=== PATIENT | male | born 1945 | race Caucasian/White ===

== ENCOUNTER 2021-04-15 20:26 | Inpatient (IN) | payer MEDICARE ==
[2021-04-15] MEDS: clonazePAM 0.5 MG TAB PO PRN (23:54)
[2021-04-16] MEDS ORDERED: Docusate 100 MG CAP PO PRN (08:43)
[2021-04-16] MEDS ORDERED: Senokot 8.6 MG TAB PO PRN (08:44)
[2021-04-16] MEDS: Metoprolol Tartrate 25 MG TAB PO SCH ×2 (08:55→20:39)
[2021-04-16] MEDS: Lisinopril 5 MG TAB PO SCH (08:55)
[2021-04-16] MEDS: Clopidogrel Bisulfate 75 MG TAB PO SCH (08:55)
[2021-04-16] MEDS: Atorvastatin Calcium 40 MG TAB PO SCH (08:55)
[2021-04-16] MEDS ORDERED: Acetaminophen 500 MG TAB PO PRN ×2 (15:42)
[2021-04-16] MEDS: Aspirin Chewable 81 MG TAB PO SCH (20:39)
[2021-04-17] MEDS: Clopidogrel Bisulfate 75 MG TAB PO SCH (09:01)
[2021-04-17] MEDS: Metoprolol Tartrate 25 MG TAB PO SCH ×2 (09:01→21:23)
[2021-04-17] MEDS: Atorvastatin Calcium 40 MG TAB PO SCH (09:01)
[2021-04-17] MEDS: Lisinopril 5 MG TAB PO SCH (09:01)
[2021-04-17] MEDS ORDERED: Senokot S 8.6-50 MG TAB PO PRN (09:32)
[2021-04-17] MEDS ORDERED: Acetaminophen 500 MG TAB PO PRN (09:32)
[2021-04-17] MEDS: Aspirin Chewable 81 MG TAB PO SCH (21:23)
[2021-04-17] MEDS: clonazePAM 0.5 MG TAB PO PRN (22:11)
[2021-04-18] MEDS: Atorvastatin Calcium 40 MG TAB PO SCH (08:11)
[2021-04-18] MEDS: Clopidogrel Bisulfate 75 MG TAB PO SCH (08:11)
[2021-04-18] MEDS: Metoprolol Tartrate 25 MG TAB PO SCH ×2 (08:11→20:33)
[2021-04-18] MEDS: Lisinopril 5 MG TAB PO SCH (08:11)
[2021-04-18 13:02] VITALS: BMI 18.6
[2021-04-18] MEDS: Aspirin Chewable 81 MG TAB PO SCH (20:33)
[2021-04-19] MEDS: Clopidogrel Bisulfate 75 MG TAB PO SCH (08:16)
[2021-04-19] MEDS: Atorvastatin Calcium 40 MG TAB PO SCH (08:16)
[2021-04-19] MEDS: Metoprolol Tartrate 25 MG TAB PO SCH ×2 (08:16→20:06)
[2021-04-19] MEDS: Lisinopril 5 MG TAB PO SCH (08:16)
[2021-04-19] MEDS: Aspirin Chewable 81 MG TAB PO SCH (20:06)
[2021-04-20] MEDS: Clopidogrel Bisulfate 75 MG TAB PO SCH (08:34)
[2021-04-20] MEDS: Lisinopril 5 MG TAB PO SCH (08:34)
[2021-04-20] MEDS: Atorvastatin Calcium 40 MG TAB PO SCH (08:34)
[2021-04-20] MEDS: Metoprolol Tartrate 25 MG TAB PO SCH ×2 (08:35→20:20)
[2021-04-20] MEDS: clonazePAM 0.5 MG TAB PO PRN (20:20)
[2021-04-20] MEDS: Aspirin Chewable 81 MG TAB PO SCH ×2 (20:20→20:22)
[2021-04-21] MEDS: Atorvastatin Calcium 40 MG TAB PO SCH (09:16)
[2021-04-21] MEDS: Metoprolol Tartrate 25 MG TAB PO SCH ×2 (09:16→20:11)
[2021-04-21] MEDS: Lisinopril 5 MG TAB PO SCH (09:16)
[2021-04-21] MEDS: Clopidogrel Bisulfate 75 MG TAB PO SCH (09:16)
[2021-04-21 19:54] LABS: SARS-CoV-2 PCR by NAA Not Detected (NotDetected)
[2021-04-21] MEDS: clonazePAM 0.5 MG TAB PO PRN (20:10)
[2021-04-21] MEDS: Aspirin Chewable 81 MG TAB PO SCH (20:11)
[2021-04-22 07:26] VITALS: TEMP 98.9
[2021-04-22] MEDS: Lisinopril 5 MG TAB PO SCH (08:47)
[2021-04-22] MEDS: Atorvastatin Calcium 40 MG TAB PO SCH (08:47)
[2021-04-22] MEDS: Clopidogrel Bisulfate 75 MG TAB PO SCH (08:47)
[2021-04-22] MEDS: Metoprolol Tartrate 25 MG TAB PO SCH (08:47)
[2021-04-22 08:48] VITALS: BP 137/79
== END 2021-04-22 17:15 | disposition home or self-care (01) | DRG 948 ==
LOC: MADMS 20:26
PROVIDERS: ADMIT Family Medicine; ATTEND Family Medicine
DX: R53.1 Weakness (principal); F41.1 Generalized anxiety disorder; E78.5 Hyperlipidemia, unspecified; I25.10 Atherosclerotic heart disease of native coronary artery without angina pectoris; I10 Essential (primary) hypertension; Z20.822 Contact with and (suspected) exposure to COVID-19; T42.0X Poisoning by, adverse effect of and underdosing of hydantoin derivatives; Z88.2 Allergy status to sulfonamides; Z88.8 Allergy status to other drugs, medicaments and biological substances; Z79.82 Long term (current) use of aspirin; Z79.899 Other long term (current) drug therapy; Z90.49 Acquired absence of other specified parts of digestive tract; Z95.1 Presence of aortocoronary bypass graft; Z87.891 Personal history of nicotine dependence
CPT/HCPCS: 36416; U0003; U0005